=== PATIENT | female | born 1965 | race Caucasian/White ===

== ENCOUNTER → 2017-08-25 | Outpatient (CLI) | payer OTHER ==
[2017-08-25 18:11] LABS: BASO % 0.4 %; BASO ABS # 0.02 K/uL (0-0.2); EOS % 1.5 %; EOS ABS # 0.08 K/uL (0-0.5); HEMATOCRIT 40.9 % (37-47); LYMPH % 43.9 %; LYMPH ABS # 2.36 K/uL (1.2-3.4); MEAN CELL VOLUME 89.5 fL (80-100); MEAN CORPUSCULAR HEMOGLOBIN 30.6 pg (25-34); MEAN CORPUSCULAR HGB CONC 34.2 g/dl (32-36); MEAN PLATELET VOLUME 9.5 fL (7.4-10.4); MONO % 7.4 %; NEUT % 46.8 %; NEUT ABS # 2.52 K/uL (1.4-6.5); PLATELET COUNT 181 K/uL (130-400); RED CELL DISTRIBUTION WIDTH CV 13.2 % (11.5-14.5); RED CELL DISTRIBUTION WIDTH SD 43.2 fL (36.4-46.3); WHITE BLOOD COUNT 5.38 K/uL (4.8-10.8)
[2017-08-25 18:40] LABS: ALT/SGPT 34 U/L (12-78); AST/SGOT 27 U/L (15-37); BLOOD UREA NITROGEN 13 mg/dl (7-18); CALCIUM 9.2 mg/dl (8.5-10.1); CARBON DIOXIDE 26 mmol/L (21-32); CREATININE 0.98 mg/dl (0.60-1.20); GLUCOSE 72 mg/dl (70-99); POTASSIUM 4.2 mmol/L (3.5-5.1); SODIUM 136 mmol/L (136-145)
[2017-08-25 18:43] LABS: ALKALINE PHOSPHATASE 45 U/L (45-117); CHOLESTEROL 186 mg/dl (0-200); LDL CHOLESTEROL CALCULATED 109 mg/dl
== END | disposition home or self-care (01) ==
LOC: C.LAB 17:33
PROVIDERS: ATTEND Family Medicine
DX: Z00.00 Encounter for general adult medical examination without abnormal findings (principal)